=== PATIENT | female | born 2000 | race African-American/Black ===

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

== ENCOUNTER → 2018-02-08 | Outpatient (CLI) | payer OTHER, MEDICAID | LOC: M RAD 07:31 | DX: Z34.82 Encounter for supervision of other normal pregnancy, second trimester (principal); Z3A.27 27 weeks gestation of pregnancy ==

== ENCOUNTER → 2018-02-21 | Outpatient (CLI) | payer OTHER, MEDICAID ==
[2018-02-21 18:04] LABS: BASO % 0.1 % (0.0-1.0); EOS # 0.1 10^3/uL (0.0-0.50); EOS % 1.8 % (0.0-3.0); HEMATOCRIT 31.7 % (36.0-47.0); HEMOGLOBIN 10.3 g/dl (12.0-15.5); IMMATURE GRANULOCYTE % 0.5 % (0-3.0); LYMPH # 1.5 10^3/uL (1.5-6.5); LYMPH % 18.8 % (24.0-44.0); MEAN CORPUSCULAR HEMOGLOBIN 32.6 pg (27.0-33.0); MEAN CORPUSCULAR HGB CONC 32.5 g/dl (32.0-36.5); MEAN CORPUSCULAR VOLUME 100.3 fl (80.0-96.0); MONO # 0.5 10^3/uL (0.0-0.8); MONO % 6.6 % (0.0-5.0); NEUTROPHILS # 5.6 10^3/uL (1.8-7.7); NEUTROPHILS % 72.2 % (36.0-66.0); PLATELET COUNT, AUTOMATED 267 10^3/uL (150-450); RED BLOOD COUNT 3.16 10^6/uL (4.00-5.40); RED CELL DISTRIBUTION WIDTH 11.5 % (11.5-14.5); WHITE BLOOD COUNT 7.7 10^3/uL (4.0-10.0)
[2018-02-21 19:33] LABS: GLUCOSE CHALLENGE TEST 1 HOUR 117 MG/DL (LESS THAN 140)
== END ==
LOC: M SMT 13:32
DX: Z36.9 Encounter for antenatal screening, unspecified (principal)
CPT/HCPCS: 82950

== ENCOUNTER 2018-04-19 17:07 | Inpatient (IN) | payer OTHER, MEDICAID ==
[2018-04-19] MEDS: PENICILLIN G POTASSIUM IV 5 MU in D5W MINI-BAG PLUS 100 ML IV (19:39)
[2018-04-19] MEDS: LR 1,000 ML IV (19:39)
[2018-04-19] MEDS: PENICILLIN G POTASSIUM IV 2.5 MU in D5W 100 ML IV (23:00)
[2018-04-19] MEDS ORDERED: LR 1,000 ML IV (23:45)
[2018-04-19] MEDS ORDERED: OXYTOCIN 30 UNITS IN 0.9% NaCl 500ML IV BAG (J2590) As Ordered (23:50)
[2018-04-20] MEDS: OXYTOCIN DRIP 30 UNITS in APPROPRIATE DILUENT 1 EA IV (02:09)
[2018-04-20] MEDS: LR 1,000 ML IV (02:09)
[2018-04-20 02:10] LABS: HEMOGLOBIN 10.2 g/dl (12.0-15.5); MEAN CORPUSCULAR HEMOGLOBIN 30.9 pg (27.0-33.0); MEAN CORPUSCULAR HGB CONC 32.9 g/dl (32.0-36.5); MEAN CORPUSCULAR VOLUME 93.9 fl (80.0-96.0); PLATELET COUNT, AUTOMATED 272 10^3/uL (150-450); RED CELL DISTRIBUTION WIDTH 11.9 % (11.5-14.5); WHITE BLOOD COUNT 9.5 10^3/uL (4.0-10.0)
[2018-04-20] MEDS ORDERED: MEASLES,MUMPS,RUBELLA VACCINE INJ (MMR-II) (90707) SC (02:15)
[2018-04-20] MEDS ORDERED: DIBUCAINE 1% OINTMENT 30GM TOP (02:15)
[2018-04-20] MEDS ORDERED: RHOGAM 300 MCG (1500 IU) INJ (J2790) IM (02:15)
[2018-04-20] MEDS ORDERED: ACETAMINOPHEN 500 MG TAB PO (02:15)
[2018-04-20] MEDS ORDERED: ONDANSETRON 4MG/2ML VIAL (J2405) IV (02:15)
[2018-04-20] MEDS ORDERED: PROMETHAZINE 25 MG TAB PO (02:15)
[2018-04-20] MEDS: PRENATAL VITAMINS CHEWABLE TABLET PO (08:33)
[2018-04-20] MEDS: DOCUSATE SODIUM 100 MG CAP PO (08:33)
[2018-04-20] MEDS: IBUPROFEN 800 MG TAB PO (08:34)
[2018-04-21] MEDS: IBUPROFEN 800 MG TAB PO (01:23)
[2018-04-21] MEDS: PRENATAL VITAMINS CHEWABLE TABLET PO (09:07)
[2018-04-22] MEDS: PRENATAL VITAMINS CHEWABLE TABLET PO (08:09)
== END 2018-04-22 11:10 | disposition home or self-care (01) | DRG 775 ==
LOC: M LDI 17:07 → M OBS 04-20 03:59
PROVIDERS: Obstetrics & Gynecology
PROC: 10E0XZZ Delivery of Products of Conception, External Approach (ICD-10-PCS; principal; 2018-04-20)
DX: O99.824 Streptococcus B carrier state complicating childbirth (principal); Z3A.37 37 weeks gestation of pregnancy; Z37.0 Single live birth

== ENCOUNTER 2019-02-23 22:28 | Emergency (ER) | payer MEDICAID, OTHER ==
[~2019-02-23] VITALS: Ht 177.8 cm; Wt 68.2 kg
[~2019-02-23 22:28] MED LIST changes: +HYDR-3715 PO; +IBUP-1114 PO; +MAPA500T2 PO; -NORCOTAB PO; +PRENTAB9 PO
[2019-02-24 00:09] LABS: INFLUENZA A AMPLIFICATION NEGATIVE (NEGATIVE); INFLUENZA B AMPLIFICATION NEGATIVE (NEGATIVE)
[2019-02-24] MEDS ORDERED: NEXP1IMP SC (00:24)
[2019-02-24 01:04] VITALS: BP 119/81
--- NOTE | 2019-02-24 08:26 | REP ---
Clinical: Dyspnea . Technique: PA and lateral. Comparison: None . Findings: The mediastinum and cardiac silhouette are normal. The lung volumes are symmetric and normal. No acute consolidation, effusion, or pneumothorax. Skeletal structures are intact and normal for age. Impression: Normal chest x-ray. No focal consolidation. Electronically Signed by Jaylan Gonzalez MD 02/24/2019 08:17 A
== END 2019-02-24 01:37 | disposition home or self-care (01) ==
LOC: M ED 22:28
DX: B34.9 Viral infection, unspecified (principal); Z79.3 Long term (current) use of hormonal contraceptives

== ENCOUNTER → 2019-05-16 | Outpatient (REF) | payer OTHER ==
[~2019-05-16] MED LIST changes: +NEXP1IMP SC
[2019-05-16 20:02] LABS: CHLAMYDIA DNA AMPLIFICATION NEGATIVE (NEGATIVE); GC DNA AMPLIFICATION NEGATIVE (NEGATIVE)
== END ==
LOC: M LAB REF 17:02
PROVIDERS: ATTEND Advanced Practice Midwife
DX: N94.10 Unspecified dyspareunia (principal)

== ENCOUNTER → 2020-12-09 | Outpatient (REF) | payer BC, OTHER | LOC: M SFHCWAGY 18:39 | PROVIDERS: ATTEND Advanced Practice Midwife | DX: Z12.4 Encounter for screening for malignant neoplasm of cervix (principal) ==

== ENCOUNTER → 2020-12-10 | Outpatient (REF) | payer BC ==
[2020-12-10 13:00] LABS: BASO % 0.2 % (0.0-1.0); EOS # 0.3 10^3/uL (0.0-0.5); EOS % 5.2 % (0.0-3.0); HEMATOCRIT 35.6 % (36.0-47.0); HEMOGLOBIN 11.4 g/dl (12.0-15.5); LYMPH # 2.3 10^3/uL (1.5-5.0); LYMPH % 34.3 % (24.0-44.0); MEAN CORPUSCULAR HEMOGLOBIN 31.4 pg (27.0-33.0); MEAN CORPUSCULAR VOLUME 98.1 fl (80.0-96.0); MONO # 0.5 10^3/uL (0.0-0.8); MONO % 6.9 % (0.0-5.0); NEUTROPHILS # 3.5 10^3/uL (1.5-8.5); NEUTROPHILS % 53.1 % (36.0-66.0); PLATELET COUNT, AUTOMATED 255 10^3/uL (150-450); RED BLOOD COUNT 3.63 10^6/uL (4.00-5.40); WHITE BLOOD COUNT 6.6 10^3/uL (4.0-10.0)
[2020-12-10 13:18] LABS: HEMOGLOBIN A1c 4.6 %
[2020-12-10 13:31] LABS: ALBUMIN 3.7 GM/DL (3.2-5.2); ALT/SGPT 24 U/L (12-78); BILIRUBIN,TOTAL 1.6 MG/DL (0.2-1.0); BLOOD UREA NITROGEN 11 MG/DL (7-18); CALCIUM LEVEL 9.3 MG/DL (8.5-10.1); CARBON DIOXIDE LEVEL 32 MEQ/L (21-32); CHLORIDE LEVEL 105 MEQ/L (98-107); CHOLESTEROL LEVEL 173 MG/DL (<200); CHOLESTEROL RISK RATIO 2.883 (<5); CREATININE FOR GFR 0.93 MG/DL (0.55-1.30); FREE T4 0.98 NG/DL (0.76-1.46); GLOMERULAR FILTRATION RATE > 60.0 (>60); GLUCOSE, FASTING 81 MG/DL (70-100); HDL CHOLESTEROL 60 MG/DL (>40); LDL CHOLESTEROL 102 MG/DL (<100); NON-HDL-C 113 MG/DL; POTASSIUM SERUM 4.1 MEQ/L (3.5-5.1); SODIUM LEVEL 138 MEQ/L (136-145); THYROID STIMULATING HORMONE 0.594 uIU/ML (0.358-3.740); TOTAL 25(OH) VITAMIN D 12.6 NG/ML (30.0-100.0); TOTAL PROTEIN 7.2 GM/DL (6.4-8.2); TRIGLYCERIDES LEVEL 55 MG/DL (<150)
== END ==
LOC: M LAB REF 12:13
PROVIDERS: ATTEND Nurse Practitioner Family
DX: Z13.228 Encounter for screening for other metabolic disorders (principal)

== ENCOUNTER → 2021-02-19 | Outpatient (CLI) | payer BC ==
--- NOTE | 2021-02-19 10:34 | REP ---
INDICATION: N64.4 MASTODYNIA,N63.10 RT BREAST LUMP; N64.4 MASTODYNIA,N63.10 RT BREST LUMP. COMPARISON: None. TECHNIQUE: Right breast mammogram performed in the MLO, mL and CC projections with tomosynthesis. Focused right breast ultrasound also performed. FINDINGS: The breast parenchyma is extremely dense limiting the sensitivity of the mammogram. No definite mass is seen. No clustered microcalcifications are seen. Real-time sonographic evaluation of the right breast performed at the site of the reported palpable abnormality, in the region of the axillary tail. At that location there is a morphologically normal appearing lymph node which is not significantly enlarged measuring 1.6 x 1.1 x 0.5 cm. Sonographically this has a benign appearance. No other cystic or solid nodule is seen. The Volpara volumetric breast density pattern is D. IMPRESSION: BIRADS/ACR category 2, benign. The mammogram is extremely limited due to dense breast parenchyma, with no gross abnormality seen. At the site of the reported palpable abnormality a benign-appearing lymph node is present by ultrasound. This patient's Tyrer-Cuzick lifetime breast cancer risk assessment score is 9.5%. This mammogram was interpreted with the aid of an FDA-approved computer-aided detection system. The patient states she had a clinical breast exam in January 2021. The patient letter being requested is M2. RECOMMENDATION: Recommend continued clinical follow-up of the palpable abnormality. <Electronically signed by Jose M Maher > 02/19/21 [id number]
== END ==
LOC: M WHC 07:51
PROVIDERS: ATTEND Nurse Practitioner Family
DX: Z12.31 Encounter for screening mammogram for malignant neoplasm of breast (principal); N64.4 Mastodynia; R59.0 Localized enlarged lymph nodes
CPT/HCPCS: 76642; 77066; G0279

== ENCOUNTER → 2022-12-22 | Outpatient (REF) | payer BC ==
[~2022-12-22] MED LIST changes: +ETON68IM SC; -NEXP1IMP SC
[2022-12-22 18:46] LABS: BASO % 0.1 % (0.0-1.0); EOS # 0.6 10^3/uL (0.0-0.5); EOS % 7.4 % (0.0-3.0); HEMATOCRIT 36.5 % (36.0-47.0); HEMOGLOBIN 11.7 g/dl (12.0-15.5); LYMPH # 3.2 10^3/uL (1.5-5.0); LYMPH % 41.3 % (24.0-44.0); MEAN CORPUSCULAR HEMOGLOBIN 32.2 pg (27.0-33.0); MEAN CORPUSCULAR HGB CONC 32.1 g/dl (32.0-36.5); MEAN CORPUSCULAR VOLUME 100.6 fl (80.0-96.0); MONO # 0.5 10^3/uL (0.0-0.8); NEUTROPHILS # 3.4 10^3/uL (1.5-8.5); NEUTROPHILS % 44.1 % (36.0-66.0); PLATELET COUNT, AUTOMATED 265 10^3/uL (150-450); RED BLOOD COUNT 3.63 10^6/uL (4.00-5.40); WHITE BLOOD COUNT 7.7 10^3/uL (4.0-10.0)
== END ==
LOC: M LAB REF 18:15
PROVIDERS: ATTEND Nurse Practitioner Family
DX: Z13.0 Encounter for screening for diseases of the blood and blood-forming organs and certain disorders involving the immune mechanism (principal)

== ENCOUNTER → 2023-07-07 | Outpatient (REF) | payer BC | LOC: M LAB REF 21:47 | PROVIDERS: ATTEND Physician Assistant Medical | DX: J02.9 Acute pharyngitis, unspecified (principal) ==